=== PATIENT | male | born 1985 | race Caucasian/White ===

== ENCOUNTER 2018-12-25 21:18 | Emergency (ER) | payer OTHER ==
[2018-12-25] MEDS: DIAZEPAM 5 MG TAB PO (22:17)
[2018-12-25] MEDS: KETOROLAC 30 MG INJ IM (22:17)
[2018-12-25] MEDS: HYDROCODONE/APAP (10/325) TAB PO (23:04)
== END 2018-12-25 23:58 | disposition home or self-care (01) ==
LOC: E/R 21:18
DX: S29.019A Strain of muscle and tendon of unspecified wall of thorax, initial encounter (principal); F17.210 Nicotine dependence, cigarettes, uncomplicated; X50.0XXA Overexertion from strenuous movement or load, initial encounter; Y92.9 Unspecified place or not applicable
CPT/HCPCS: 96372; 99284-25